=== PATIENT | male | born 1990 | race Two or more races ===

== ENCOUNTER 2021-10-20 18:11 | Inpatient (IN) | payer MEDICAID ==
[~2021-10-20] VITALS: Ht 175.3 cm; Wt 98.9 kg
[2021-10-20 20:38] VITALS: BP 151/82
[2021-10-20] MEDS ORDERED: CARI1.5C PO (21:01)
[2021-10-20] MEDS ORDERED: magnesium hydroxide 30ml (MOM) UD suspension PO PRN (21:05)
[2021-10-20] MEDS ORDERED: loperamide 2mg capsule PO PRN (21:05)
[2021-10-20] MEDS ORDERED: mag hydrox/Alum hydrox/simeth 30ml oral suspension PO PRN (21:05)
[2021-10-20] MEDS ORDERED: acetaminophen 325mg tablet PO PRN ×2 (21:05)
[2021-10-20] MEDS: traZODone 50mg tablet PO PRN (21:15)
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
[2021-10-21 07:03] VITALS: BP 150/85
[2021-10-21 07:45] LABS: HEMOGLOBIN A1C 5.2 % (4.5-6.2)
[2021-10-21 09:42] LABS: CHOL/HDL RATIO 3.3 (0.00-4.99); CHOLESTEROL 134 MG/DL (0-200); HDL CHOLESTEROL 41 MG/DL (35-60); TRIGLYCERIDES 93 MG/DL (20-135)
[2021-10-21 09:43] LABS: LDL CHOLESTEROL 74 MG/DL (50-100)
[2021-10-21] MEDS ORDERED: albuterol 2.5 MG/3 ML nebule NEB PRN (14:10)
[2021-10-21] MEDS ORDERED: NICOTINE POLACRILEX 2 MG LOZENGE BC PRN (14:10)
--- NOTE | 2021-10-21 16:08 | NUR ---
Nursing Progress Note Legal hold: 5150 Client on involuntary status for DTS. Report received from STEVEN Glez with use of SBAR Why they are here: Pt here on a 5150 for DTS for reporting that he had thrown his meds away due to impulse/urges to take them all in an attempt to overdose Assessment What has happened this shift: Patient is resting quietly in bed at the start of the shift. Cooperative with 1:1 assessment. No medication due this shift. Socializes on the unit and interacts appropriately with peers. Denies any SI at this time. States, Do I have anything for anxiety? I dont need anything now but I get manic sometimes. Noted to be smiling and pacing the unit. Snaps/ fidgets his fingers frequently when walking. S/I, H/I: Denies A/VH: Denies Sleep: 1 hour in the morning ADL's: Independent Group attendance: No Were Meds taken: N/A Any med S/E: None observed or reported. Mental Status Exam Appearance: Male, neat, clean dressed in green unit scrubs. Eye contact: Good Behavior: Cooperative, pleasant, social Speech: Clear, normal rate/ volume Mood: Good. Affect: Congruent, full range Thought process: Linear Thought Content: Cognition: A/O x4 Insight: Fair Judgment: Fair Interventions PRN's used: None Therapeutic interventions: Provided 1:1 assessment with therapeutic communication and active listening, provided clear and simple instructions, encouraged participation on the unit and independent completion of ADLs, medication administration/education/monitoring, and maintained Q 15 min safety checks. Restraints/seclusion/emergency medication: N/A Justification of Continued Inpatient Treatment: Patient requires medication stabilization and a safe and supportive environment.
[2021-10-21 19:54] VITALS: BP 135/90
[2021-10-21] MEDS: traZODone 50mg tablet PO PRN (23:03)
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
[2021-10-22] MEDS: ESCITALOPRAM OXALATE 5 MG TABLET PO SCH (07:29)
[2021-10-22 07:34] VITALS: BP 118/67
[2021-10-22 07:51] VITALS: BP 151/92
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
[2021-10-22 19:00] VITALS: BP 141/88
--- NOTE | 2021-10-22 23:22 | NUR ---
Nursing Progress Note: Sylvester Legal hold: 5150 Client on involuntary status for DTS. Report received from Luli with use of SBAR Why they are here: Pt here on a 5150 for DTS for reporting that he had thrown his meds away due to impulse/urges to take them all in an attempt to overdose Assessment What has happened this shift: Patient paces the halls and smiles, he interacts with peers and is pleasant with staff. He is compliant with 1:1 and when asked how his day went he replied laughing, "well I'm in a mental hospital so". He states, "I am writing a letter that I might give to you that I want to have, but please when you read it, don't talk to me about it." Pt never does give RN paper, but he approaches Rn later and says, "I will just give it to myself because it has a lot of crazy shit on it." He paces the hallway for awhile longer and requests trazodone at 2330 which is given to him, and then he lays dowwn. S/I, H/I: Denies A/VH: Denies Sleep: None noted this shift. ADL's: Independent Group attendance: Yes Were Meds taken: N/A Any med S/E: None observed or reported. Mental Status Exam Appearance: Male, neat, clean dressed in green unit scrubs. Eye contact: Good Behavior: Cooperative, pleasant, social Speech: Clear, normal rate/ volume Mood: fair Affect: blunted Thought process: possible thought blocking Thought Content: a letter Cognition: A/O x4 Insight: Fair Judgment: Fair Interventions PRN's used: None Therapeutic interventions: Provided 1:1 assessment with therapeutic communication and active listening, provided clear and simple instructions, encouraged participation on the unit and independent completion of ADLs, medication administration/education/monitoring, and maintained Q 15 min safety checks. Restraints/seclusion/emergency medication: N/A Justification of Continued Inpatient Treatment: Patient requires medication stabilization and a safe and supportive environment.
[2021-10-22] MEDS: traZODone 50mg tablet PO PRN (23:47)
[2021-10-23] MEDS: traZODone 50mg tablet PO PRN ×2 (00:51→22:32)
[2021-10-23 07:09] VITALS: BP 141/93
[2021-10-23] MEDS: ESCITALOPRAM OXALATE 5 MG TABLET PO SCH (07:39)
[2021-10-23] MEDS: CARIPRAZINE 1.5 MG CAPSULE PO SCH (15:20)
--- NOTE | 2021-10-23 16:29 | NUR ---
Nursing Progress Note: Sylvester Legal hold: 5150 Client on involuntary status for DTS. Report received from STEVEN Doshi with use of SBAR Why they are here: Pt here on a 5150 for DTS for reporting that he had thrown his meds away due to impulse/urges to take them all in an attempt to overdose Assessment What has happened this shift: Patient is resting quietly in bed at the start of the shift. Cooperative with 1:1 assessment and medications. Socializes on the unit and smiles much of the time. Appears somewhat anxious AEB fidgeting and states he is waiting to talk to the doctor about something that hes not been honest about. States, They might want to change my meds after I tell them. S/I, H/I: Denies A/VH: Denies Sleep: None noted this shift. ADL's: Independent Group attendance: NA Were Meds taken: Yes Any med S/E: None observed or reported. Mental Status Exam Appearance: Male, neat, clean dressed in green unit scrubs. Eye contact: Good Behavior: Cooperative, pleasant, social Speech: Clear, normal rate/ volume Mood: Good. Affect: Congruent, full range Thought process: Linear Thought Content: Talking to the doctor about his mental health symptoms Cognition: A/O x4 Insight: Fair Judgment: Fair Interventions PRN's used: None Therapeutic interventions: Provided 1:1 assessment with therapeutic communication and active listening, provided clear and simple instructions, encouraged participation on the unit and independent completion of ADLs, medication administration/education/monitoring, and maintained Q 15 min safety checks. Restraints/seclusion/emergency medication: N/A Justification of Continued Inpatient Treatment: Patient requires medication stabilization and a safe and supportive environment.
[2021-10-23 20:11] VITALS: BP 144/83
--- NOTE | 2021-10-23 23:24 | NUR ---
Nursing Progress Note: Sylvester Legal hold: 5250 Client on involuntary status for DTS. Report received from RN with use of SBAR Why they are here: Pt here on a 5150 for DTS for reporting that he had thrown his meds away due to impulse/urges to take them all in an attempt to overdose Assessment What has happened this shift: Pt paces the halls in an upbeat mood. He tells RN that he was able to speak with Jahaira today which made him feel better. Pts 5150 hold is up today and a 5250 is served to pt. A copy was given to him, he read it but gave it back and asked that it be shred so that no one else could read it. PT did not appear agitated or upset in regards to the 5250. He asks if he could stop getting meals and just eat snacks because he wants to lose 20 lbs. RN told pt that he will still be getting meal trays. He had snack and socialized with peers. He takes a trazodone PRN. S/I, H/I: Denies A/VH: Denies Sleep: see sleep assessment ADL's: Independent Group attendance: NA Were Meds taken: Yes Any med S/E: None observed or reported. Mental Status Exam Appearance: Male, neat, clean dressed in green unit scrubs. Eye contact: Good Behavior: Cooperative, pleasant, social Speech: Clear, normal rate/ volume Mood: Good. Affect: upbeat, slightly anxious Thought process: Linear Thought Content: does not share thought content very much Cognition: A/O x4 Insight: Fair Judgment: Fair Interventions PRN's used: None Therapeutic interventions: Provided 1:1 assessment with therapeutic communication and active listening, provided clear and simple instructions, encouraged participation on the unit and independent completion of ADLs, medication administration/education/monitoring, and maintained Q 15 min safety checks. Restraints/seclusion/emergency medication: N/A Justification of Continued Inpatient Treatment: Patient requires medication stabilization and a safe and supportive environment.
--- NOTE | 2021-10-24 05:53 | NUR ---
[facility] CALL: A person called stating they were from [facility] and wanted to determine if client met criteria for continued admission. This RN asked they call the Aoc Director Intelligence Officer or day shift RN as this sounded like a utilization review issue. (The client is on a 5250 at this time, so it was determined client required continued admission.) This RN could not confirm this person was from [facility].)
[2021-10-24] MEDS: CARIPRAZINE 1.5 MG CAPSULE PO SCH (07:55)
[2021-10-24 08:22] VITALS: BP 133/87
--- NOTE | 2021-10-24 11:19 | NUR ---
Initial: Pt admitted w/ suicidal ideations per EMR. Currently on Regular diet w/ mostly 100% intake of meals meeting nutrient needs at this time. Per discharge specialist, pt inquired about not receiving meal trays and only wanting snacks so he could lose 20lb. LBM 10/22. No nutrition intervention implemented at this time, will continue to monitor. Recs: 1. Continue Regular diet as tolerated 2. Bowel care per rx 3. Weekly wts Addendum: 10/24/21 at [address] Amended: Links added.
--- NOTE | 2021-10-24 18:09 | NUR ---
Nursing Progress Note: Legal hold: 5250 Client on involuntary status for DTS. Report received from ELFEGO Hood with use of SBAR Why they are here: Pt here on a 5150 for DTS for reporting that he had thrown his meds away due to impulse/urges to take them all in an attempt to overdose Assessment What has happened this shift: Received patient while he was ambulating throughout the hallways over and over, and then sat in the dining room to rest. Administered morning medications, completed patient assessment and 1:1 Patient Interview. Patient ate all meals in the dining room, and received snacks. Patient spent time coloring in the Community Room most of the day. Patient resting in bed with no complaints at this time. S/I, H/I: Patient reports that he is no longer suicidal but states Im trying to think of a plan in case I need it. A/VH: Denies Sleep: See Sleep Assessment ADL's: Independent Group attendance: No Group Meeting Held Today. Were Meds taken: Yes, without hesitation. Any med S/E: None observed or reported. Mental Status Exam Appearance: Male with brown hair wearing green unit scrubs. Eye contact: Good Behavior: Cooperative, pleasant Speech: Clear, normal rate/ volume Mood: Good. Affect: Cheerful Thought process: Linear Thought Content: Linear Cognition: A/O x4 Insight: Fair Judgment: Fair Interventions PRN's used: None Therapeutic interventions: Provided 1:1 assessment with therapeutic communication and active listening, provided clear and simple instructions, encouraged participation on the unit and independent completion of ADLs, medication administration/education/monitoring, and maintained Q 15 min safety checks. Restraints/seclusion/emergency medication: N/A Justification of Continued Inpatient Treatment: Patient requires medication stabilization and a safe and supportive environment.
--- NOTE | 2021-10-24 18:45 | NUR ---
Nursing Progress Note: Sylvester. he is amb in halls no complaints go by "Evan" Legal hold: 0180 Client on involuntary status for DTS. Report received with use of SBAR
[2021-10-24 20:19] VITALS: BP 143/85
--- NOTE | 2021-10-25 00:40 | NUR ---
Nursing Progress Note: Sylvester. Legal hold: 5250 Client on involuntary status for DTS. Report received with use of SBAR Why they are here: Pt here on a 5250 for DTS for reporting that he had thrown his meds away due to impulse/urges to take them all in an attempt to overdose Assessment What has happened this shift: Pt ambulating in halls freq. sat in rec room for snack and watching some tv. Amb in grubbs at 2300 enc to go to bed. No medications tonight, Pt declined prn Desyrel. Completed 1:1 patient interview. Pt calm and pleasant. No complaints. Pt is resistive to touch, and states he have some stuff going on but will not elaborate. S/I, H/I: Patient reports that he is no longer suicidal but states Im trying to think of a plan in case I need it. A/VH: Denies Sleep: Enc to sleep at 2300, sleeping at this time. ADL's: Independent Group attendance: N/A Were Meds taken: no meds due or requested tonight. Any med S/E: None observed or reported. Mental Status Exam Appearance: brown hair wearing green unit scrubs. Eye contact: Good Behavior: Cooperative, pleasant Speech: Clear, normal rate/ volume Mood: Good. Affect: Cheerful Thought process: Linear Thought Content: states we are like hamsters in a hamster wheel here Cognition: A/O x4 Insight: Fair Judgment: Fair Interventions PRN's used: None Therapeutic interventions: Provided 1:1 assessment with therapeutic communication and active listening, provided clear and simple instructions, encouraged participation on the unit and independent completion of ADLs, medication administration/education/monitoring, and maintained Q 15 min safety checks. Restraints/seclusion/emergency medication: N/A Justification of Continued Inpatient Treatment: Patient requires medication stabilization and a safe and supportive environment.
[2021-10-25 07:36] VITALS: BP 119/88
[2021-10-25] MEDS: CARIPRAZINE 1.5 MG CAPSULE PO SCH (08:02)
[2021-10-25] MEDS ORDERED: atomoxetine 40 MG capsule PO ONE (13:45)
[2021-10-25] MEDS ORDERED: atomoxetine 40 MG capsule PO SCH (13:57)
[2021-10-25] MEDS: atomoxetine 25mg capsule PO SCH ×2 (14:33→14:40)
--- NOTE | 2021-10-25 17:52 | NUR ---
Nursing Progress Note: Legal hold: 5250 Client on involuntary status for DTS. Report received from ELFEGO Cox with use of SBAR Why they are here: Pt here on a 5150 for DTS for reporting that he had thrown his meds away due to impulse/urges to take them all in an attempt to overdose Assessment What has happened this shift: Received patient while he was ambulating in the hallway before breakfast. Patient states Im doing well. Patient reports I didnt sleep too much last night. I think about 2 hours. Reported by nocs that patient slept 2.5 hours. Patient ambulated frequently in the hallways throughout the morning and afternoon. Patient ate meals in the dining room and spoke with peers who were sitting at the same table. Patient is smiling and pleasant when speaking to staff and other peers. Patient coloring pictures in between meals in the Community Room, and took a brief afternoon nap. S/I, H/I: Denies A/VH: Denies Sleep: 2.50 hours ADL's: Independent Group attendance: No Group Meeting Held This Morning. Attended & participated in Afternoon Group Meeting. Were Meds taken: Yes, without hesitation. Patient started Strattera this afternoon. Any med S/E: None observed or reported. Mental Status Exam Appearance: Male with brown hair wearing green unit scrubs. Eye contact: Good Behavior: Cooperative, pleasant Speech: Clear, normal rate/ volume Mood: Im doing well. Affect: Cheerful Thought process: Linear Thought Content: Linear Cognition: A/O x4 Insight: Fair Judgment: Fair Interventions PRN's used: None Therapeutic interventions: Provided 1:1 assessment with therapeutic communication and active listening, provided clear and simple instructions, encouraged participation on the unit and independent completion of ADLs, medication administration/education/monitoring, and maintained Q 15 min safety checks. Restraints/seclusion/emergency medication: N/A Justification of Continued Inpatient Treatment: Patient requires medication stabilization and a safe and supportive environment.
[2021-10-25 20:00] VITALS: BP 136/77
[2021-10-25] MEDS: QUEtiapine 25mg tablet PO SCH (20:40)
[2021-10-25] MEDS: traZODone 50mg tablet PO PRN (20:40)
--- NOTE | 2021-10-26 04:54 | NUR ---
Nursing Progress Note: Legal hold: 5250 Client on involuntary status for DTS. Report received from ELFEGO Rockwell with use of SBAR Why they are here: Pt here on a 5150 for DTS for reporting that he had thrown his meds away due to impulse/urges to take them all in an attempt to overdose Assessment What has happened this shift: Patient walking the unit at the beginning of shift. Pleasant and cooperative with care; compliant with medication. PRN Trazodone provided. Patient denies HI, A/VH but hesitated when asked about SI. Patient stated, "well I know I'm not good enough for you guys to let me leave." He then asked data analyst report writer, "do I need to tell you why I am here?" without being asked and continued, "Well, you know, because you know..." and continued to repeat without ever explaining. He sort of laughed, smiled and fidgeted that did not appear congruent at the time. Patient participated in HS snack prior to bed; observed sleeping and does not appear to be having difficulty. S/I, H/I: +SI A/VH: Denies Sleep: Refer to sleep assessment ADL's: Independent Group attendance: NA Were Meds taken: Yes Any med S/E: None observed or reported Mental Status Exam Appearance: Neat and appropriately dressed in green unit attire Eye contact: Good Behavior: Pleasant and cooperative, social Speech: Clear, audible, regular rate/rhythm Mood: "OK" Affect: Animated/incongruent Thought process: Linear with thought blocking Thought Content: Difficult to assess Cognition: A/O x4 Insight: Fair Judgment: Fair Interventions PRN's used: Trazodone Therapeutic interventions: Provided 1:1 assessment with therapeutic communication and active listening, provided clear and simple instructions, encouraged participation on the unit and independent completion of ADLs, medication administration/education/monitoring, and maintained Q 15 min safety checks. Restraints/seclusion/emergency medication: NA Justification of Continued Inpatient Treatment: Patient requires medication stabilization and a safe and supportive environment.
[2021-10-26 07:29] VITALS: BP 130/75
--- NOTE | 2021-10-26 09:20 | NUR ---
Pt. attended two groups today. In the first one we talked about coping with depression and what coping skills they are able to access to help them stay well. In the second group we did an art expression called, the Path to Wellness where they had to draw out their path to wellness in picture form with steps they will take to keep them well. Pt. engaged appropriately in both groups. He was very interested in the topic and shared a lot from his own personal journey. He moni a picture of his path walking through a forest and was able to map out some steps he needs to take in his own life to stay well. He was alert and oriented X 4. His thought content and thought process were WNL. He was very enthusiastic about he group and reported that going to group is really helping him. Alayna Patel LCSW
[2021-10-26] MEDS ORDERED: atomoxetine 25mg capsule PO ONE (12:55)
--- NOTE | 2021-10-26 15:22 | NUR ---
Nursing Progress Note: Legal hold: 5250 Client on involuntary status for DTS. Report received from ELFEGO Cox with use of SBAR Why they are here: Pt here on a 5150 for DTS for reporting that he had thrown his meds away due to impulse/urges to take them all in an attempt to overdose Assessment What has happened this shift: Patient was up at change of shift. Patient is talkative and social. Patient takes his medication without incident. Patient denies SI/HI and denies audio/visual hallucinations. Patient did not have any meds scheduled for the morning. Later in the morning patient asked RN about the medication he was getting for ADHD. RN spoke to Dr Posadas when he came in in the early afternoon. Dr. Posadas wants patient on Straterra and had RN order a one time dose and start again in the morning on 10/27. Patient states this is helping him think more clearly. Patient asked to be weighed today and RN complied. Patent is pleasant and not distress observed. S/I, H/I: Denies A/VH: Denies Sleep: No naps today. ADL's: Independent Group attendance: Yes Were Meds taken: Yes Any med S/E: None observed or reported. Mental Status Exam Appearance: Male with brown hair wearing green unit scrubs. Eye contact: Good Behavior: Cooperative, pleasant Speech: Clear, normal rate/ volume Mood: Pleasant Affect: Euthymic Thought process: Linear Thought Content: His physique Cognition: A/O x4 Insight: Fair Judgment: Fair Interventions PRN's used: None Therapeutic interventions: Provided 1:1 assessment with therapeutic communication and active listening, provided clear and simple instructions, encouraged participation on the unit and independent completion of ADLs, medication administration/education/monitoring, and maintained Q 15 min safety checks. Restraints/seclusion/emergency medication: N/A Justification of Continued Inpatient Treatment: Patient requires medication stabilization and a safe and supportive environment.
[2021-10-26 20:00] VITALS: BP 135/94
[2021-10-26] MEDS: QUEtiapine 25mg tablet PO SCH (21:40)
[2021-10-26] MEDS: traZODone 50mg tablet PO PRN (21:40)
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
[2021-10-27] MEDS: traZODone 50mg tablet PO PRN (01:33)
[2021-10-27 07:25] VITALS: BP 130/83
[2021-10-27] MEDS: atomoxetine 25mg capsule PO SCH (07:57)
[2021-10-27] MEDS ORDERED: atomoxetine 25mg capsule PO SCH (08:00)
--- NOTE | 2021-10-27 16:43 | NUR ---
Nursing Progress Note: Legal hold: 5250 Client on involuntary status for DTS. Report received from ELFEGO Cox with use of SBAR Why they are here: Pt here on a 5150 for DTS for reporting that he had thrown his meds away due to impulse/urges to take them all in an attempt to overdose Assessment What has happened this shift: Patient was asleep at change of shift and up soon after. Patient appears happy and pleasant. Patient denies suicidal/homicidal ideation. Patient denies audio/visual hallucinations. Patient was started on Strattera a couple of days ago. Per patient, Dr Posadas is going to increase his Strattera and evaluate how he does on the increased dose. Patient is social with peers and staff. Patient is a little awkward and tells RN how much he likes wearing the green scrubs. S/I, H/I: Denies A/VH: Denies Sleep: No naps today. ADL's: Independent Group attendance: No Were Meds taken: Yes Any med S/E: None observed or reported. Mental Status Exam Appearance: Male with brown hair wearing green unit scrubs. Eye contact: Good Behavior: Cooperative, pleasant Speech: Clear, normal rate/ volume Mood: Pleasant Affect: Euthymic Thought process: Linear Thought Content: His physique Cognition: A/O x4 Insight: Fair Judgment: Fair Interventions PRN's used: None Therapeutic interventions: Provided 1:1 assessment with therapeutic communication and active listening, provided clear and simple instructions, encouraged participation on the unit and independent completion of ADLs, medication administration/education/monitoring, and maintained Q 15 min safety checks. Restraints/seclusion/emergency medication: N/A Justification of Continued Inpatient Treatment: Patient requires medication stabilization and a safe and supportive environment.
[2021-10-27 20:00] VITALS: BP 130/86
[2021-10-27] MEDS: QUEtiapine 25mg tablet PO SCH (20:25)
--- NOTE | 2021-10-28 00:35 | NUR ---
Nursing Progress Note Legal hold: 5250 for being a danger to himself Report received from Roman Rockwell ticket agent Reason for Admit The patient was placed on 5150 by [facility] for danger to self after he self-presented to the ER with SI. He reported he threw his medications down the toilet out of fear he would overdose on them. He has a history of overdose. Assessment What has happened this shift: The patient was up on the unit and was social with peers and staff. He was very pleasant when approached for the evening assessment. He was dressed in [facility] scrubs and appeared well groomed. He maintained good eye contact during one to one conversation. He is alert and oriented. He has not had any behaviors that have required redirection or intervention from staff. Psychotic symptoms were not evident and were denied by the patient. He stated that he felt he had a good day. He is medication compliant he he denies medication side effects. He is able to verbalize what medications are prescribed to him. He denied anxiety. When asked how his mood was he replied, "pretty good" but stated that he struggles with depression and chronic suicidal thoughts. He stated that he felt safe here on the unit but did not yet feel ready to discharge. He reports chronic fleeting suicidal thoughts. Justification of Continued Inpatient Treatment: Medication adjustments continue for further stabilization of mood. The patient continues to have fleeting suicidal thoughts.
[2021-10-28 07:11] VITALS: BP 146/87
[2021-10-28] MEDS: atomoxetine 40 MG capsule PO SCH (07:33)
--- NOTE | 2021-10-28 08:55 | NUR ---
Pt. attended two groups today. In our first group we talked about hearing voices and read an article about coping strategies. We discussed what coping strategies they had success with in the past and brainstormed developing coping skills. The second group was an Art Expression where they had to draw opposing emotions and then write a dialogue between these emotions. Pt. is alert and oriented X 4. His thought content and thought process were WNL. He engaged well in both groups. He listened intently to this Curtain Framer and to his peers. He enjoys giving feedback and shares from his own journey. He especially enjoys the art expression. He stated, "these groups are good because they really make me think". Today in his art expression he chose sadness and donnell. He shared his written dialogue appropriately with the group. His demeanor is calm and pleasant. RUBINA GrantW
--- NOTE | 2021-10-28 10:15 | NUR ---
Reassessment: Per seed sorter pt "asks if he could stop getting meals and just eat snacks because he wants to lose 20 lbs" though RN accurately informed pt that he will still be getting meal trays. Pt continues eating well with mostly 100% PO intake of meals meeting estimated nutrient needs. Noted pt continues to participate in snacks per seed sorter. Recommend encouraging pt to continue to consume meal trays to meet estimated estimated nutrient needs. LBM 10/28. No nutrition intervention implemented at this time. Will continue to follow. Recommendations: 1. Continue regular diet 2. Bowel care per rx 3. Weekly scaled wts Addendum: 10/28/21 at [address] Amended: Links added.
--- NOTE | 2021-10-28 15:14 | NUR ---
Nursing Progress Note: Legal hold: 5250 Client on involuntary status for DTS. Report received from ELFEGO Glez with use of SBAR Why they are here: Pt here on a 5150 for DTS for reporting that he had thrown his meds away due to impulse/urges to take them all in an attempt to overdose Assessment What has happened this shift: Pt was up before breakfast. Pt was cooperative with taking his Strattera. Pt asked this RN several questions about Strattera, medication education provided. Pt reported some mild depression with intermittent thoughts of suicide though states they are not serious and he wouldn't act on them. Pt states, "I have lots of other issues though." Pt did not elaborate on his other issues. Pt is friendly and talkative. Pt paces the unit and socializes with staff and select peers. S/I, H/I: Passive, intermittent SI that pt states is not serious and he would not act on. A/VH: Pt denies Sleep: Pt slept 6.25 hours last night per noc shift report. ADL's: Independent Group attendance: Yes Were Meds taken: Yes Any med S/E: None noted or reported. Mental Status Exam Appearance: Stocky younger appearing male with straight medium length light brown hair dressed in green unit scrubs. Eye contact: Good Behavior: Pleasant, cooperative. Speech: Clear, audible, hyperverbal. Mood: Mildly depressed. Affect: Incongruent, bright though pt verbalizes that he realizes his affect does not portray his depression. Thought process: Linear Thought Content: He has lots of issues. Cognition: A/O x4 Insight: Fair Judgment: Fair Interventions PRN's used: None Therapeutic interventions: 1:1 assessment, establishment of rapport, therapeutic conversation, active listening, encouraged group attendance and participation in unit activities, medication administration/education/monitoring, provided distraction, direction, positive reinforcement, and Q 15 minute safety checks. Restraints/seclusion/emergency medication: N/A Justification of Continued Inpatient Treatment: Pt in need of crisis interruption and stabilization with medication adjustment and monitoring in a safe and therapeutic environment.
[2021-10-28 19:24] VITALS: BP 120/79
[2021-10-28] MEDS: QUEtiapine 25mg tablet PO SCH (20:15)
--- NOTE | 2021-10-29 00:58 | NUR ---
Nursing Progress Note: Legal hold: 5250 Client on involuntary status for DTS. Report received from ELFEGO Powell with use of SBAR Why they are here: Pt here on a 5150 for DTS for reporting that he had thrown his meds away due to impulse/urges to take them all in an attempt to overdose Assessment What has happened this shift: Patient observed pacing around unit at beginning of shift. Patient denies feeling suicidal and stats he is just feeling really bored. Patient refuses to take night medications. Patient states he is not going to take them tonight. Patient made agreement with doctor to see how he does tonight without it. Patient participated in snack and spent hours walking around with other patient talking. S/I, H/I: denies A/VH: Pt denies Sleep: See sleep assessment ADL's: Independent Group attendance: Yes Were Meds taken: Yes Any med S/E: None noted or reported. Mental Status Exam Appearance: Fit young man with straight medium length light brown hair dressed in green unit scrubs. Eye contact: Good Behavior: Pleasant, cooperative. Speech: Clear, audible, hyperverbal. Mood: social Affect: Incongruent, bright Thought process: Linear Thought Content: connecting with other patients Cognition: A/O x4 Insight: Fair Judgment: Fair Interventions PRN's used: None Therapeutic interventions: 1:1 assessment, establishment of rapport, therapeutic conversation, active listening, encouraged group attendance and participation in unit activities, medication administration/education/monitoring, provided distraction, direction, positive reinforcement, and Q 15 minute safety checks. Restraints/seclusion/emergency medication: N/A Justification of Continued Inpatient Treatment: Pt in need of crisis interruption and stabilization with medication adjustment and monitoring in a safe and therapeutic environment.
[2021-10-29 07:22] VITALS: BP 112/58
[2021-10-29] MEDS: atomoxetine 40 MG capsule PO SCH (07:55)
[2021-10-29] MEDS ORDERED: atomoxetine 25mg capsule PO STA (09:38)
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
[2021-10-29 19:23] VITALS: BP 129/69
[2021-10-29] MEDS: QUEtiapine 25mg tablet PO SCH (20:18)
--- NOTE | 2021-10-29 23:59 | NUR ---
Nursing Progress Note: Legal hold: 5250 Client on involuntary status for DTS. Report received from Andre TELLES with use of SBAR Why they are here: Pt here on a 5150 for DTS for reporting that he had thrown his meds away due to impulse/urges to take them all in an attempt to overdose Assessment What has happened this shift: Patient was found sitting in community room socializing with other patients at beginning of shift. Patient agreed to take night medications tonight. Patient was observed sitting in corner starting at other patient. When nurse asked if he was okay and what he was think. Patient became very excited and tried to convince the nurse that its time for him to go home. Patient took night medications without any problems. S/I, H/I: denies A/VH: Pt denies Sleep: See sleep assessment ADL's: Independent Group attendance: Yes Were Meds taken: Yes Any med S/E: None noted or reported. Mental Status Exam Appearance: Stocky young man dressed in green unit scrubs. Eye contact: Good Behavior: Pleasant, cooperative, restless, socializes with peers, does exercises. Speech: Clear, audible, hyperverbal. Mood: Elevated, restless. Affect: Animated. Thought process: Minimizes degree of mental illness, some degree of grandiosity. Thought Content: He doesn't need any medication except Strattera, he is happy and does not need to be here. Cognition: A/O x4 though minimizes situation. Insight: Fair Judgment: Poor Interventions PRN's used: None Therapeutic interventions: 1:1 assessment, establishment of rapport, therapeutic conversation, active listening, ensured contract for safety, encouraged group attendance and participation in unit activities, medication administration/education/monitoring, provided reality orientation, distraction, direction, positive reinforcement, and Q 15 minute safety checks. Restraints/seclusion/emergency medication: N/A Justification of Continued Inpatient Treatment: Pt in need of crisis interruption and stabilization with medication adjustment and monitoring in a safe and therapeutic environment.
[2021-10-30] MEDS ORDERED: atomoxetine 40 MG capsule PO SCH (08:00)
[2021-10-30] MEDS ORDERED: atomoxetine 25mg capsule PO SCH ×2 (08:00)
[2021-10-30 08:22] VITALS: BP 118/68
--- NOTE | 2021-10-30 16:22 | NUR ---
Nursing Progress Note: Legal hold: 5250 Client on involuntary status for DTS. Report received from Mary Grace Rhodes RN with use of SBAR Why they are here: Pt here on a 5150 for DTS for reporting that he had thrown his meds away due to impulse/urges to take them all in an attempt to overdose Assessment What has happened this shift: Pt was up before breakfast. Pt was cooperative with his Strattera 65 mg this morning. Pt was sitting in the community room before breakfast reading the Bible and taking notes. Pt stated that he was looking for guidance on how to be a better person. Pt has some fairly good insight. Pt continues to report daily passive SI. Pt states it is better today than yesterday, yesterday was a bad day. Pt states that his thoughts of not wishing to be alive anymore become worse when he dwells or ruminates on negative past experiences and mistakes. Pt states that he has reasons to live namely his mom and his brother. Pt states that he is a nice, compassionate person but he has a tendency to hold things in and let them build up until he explodes in a rage. Pt states that he is starting to feel better because he has started to formulate plans/goals for when he gets out of here on how he can be a better person. "Not just going to the gym but other things too." Pt chose not to elaborate on the other things. Pt has a tendency to close his eyes while he is conversing with this nurse. When he stops talking, he opens them again. Pt's Strattera was increased to 80 mg daily. Pt took his Seroquel last night though reports he did not sleep as well, his sleep was broken. Pt reports he slept better the night before last when he refused the Seroquel. S/I, H/I: Passive, intermittent SI, pt contracts for safety. A/VH: Pt denies Sleep: Pt slept 6.5 hours last night per noc shift report. ADL's: Independent Group attendance: No groups today. Were Meds taken: Yes Any med S/E: Pt reports that he did not sleep well last night he believes because of taking Seroquel. Mental Status Exam Appearance: Stocky younger appearing male with straight medium length light brown hair dressed in green unit scrubs. Eye contact: Fair; pt closes his eyes when he is conversing with staff. Behavior: Pleasant, cooperative, restless, socializes with peers, paces and does exercises with peers such as squats in the hallway. Speech: Clear, audible, hyperverbal. Mood: Calm Affect: Calm Thought process: Ruminative Thought Content: Future oriented, he is formulating plans of how to be a better person after discharge. Cognition: A/O x4 Insight: Fair to good Judgment: Fair Interventions PRN's used: None Therapeutic interventions: 1:1 assessment, therapeutic conversation, active listening, ensured contract for safety, encouraged group attendance and participation in unit activities, medication administration/education/monitoring, provided distraction, direction, positive reinforcement, and Q 15 minute safety checks. Restraints/seclusion/emergency medication: N/A Justification of Continued Inpatient Treatment: Pt in need of crisis interruption and stabilization with medication adjustment and monitoring in a safe and therapeutic environment.
[2021-10-30 20:00] VITALS: BP 148/82
[2021-10-30] MEDS: QUEtiapine 25mg tablet PO SCH (20:42)
[2021-10-30 21:29] VITALS: BP 148/82
--- NOTE | 2021-10-30 22:41 | NUR ---
Nursing Progress Note: Legal hold: 5250 Client on involuntary status for DTS. Report received from Mary Grace Rhodes RN with use of SBAR Why they are here: Pt here on a 5150 for DTS for reporting that he had thrown his meds away due to impulse/urges to take them all in an attempt to overdose Assessment What has happened this shift: Pt talking to cohorts in hallway at shift change. Pt is very polite and open. Pt reports feeling better today and states that he will not be taking his Seroquel tonight as he feels better without it. Pt goes onto describe an interaction he had with the Dr today and explaining to the Dr about his dislike for the medication. Pt watched movies with cohorts in community room. Pt sat in hallway with other pts and talked softly to each other appropriately. Pt went to bed shortly after. S/I, H/I: Passive, intermittent SI, pt contracts for safety. A/VH: Pt denies Sleep: See sleep hours ADL's: Independent Group attendance: No groups in the evening Were Meds taken:No Any med S/E: Pt reports that he did not sleep well last night he believes because of taking Seroquel. Mental Status Exam Appearance: Stocky younger appearing male with straight medium length light brown hair dressed in green unit scrubs. Eye contact: good Behavior: Pleasant, cooperative, restless, socializes with peers, talks to other pts in hallway Speech: Clear, audible, hyperverbal. Mood: Calm Affect: Calm Thought process: Ruminative Thought Content: Future oriented, he is formulating plans of how to be a better person after discharge. Cognition: A/O x4 Insight: Fair to good Judgment: Fair Interventions PRN's used: None Therapeutic interventions: 1:1 assessment, therapeutic conversation, active listening, ensured contract for safety, encouraged group attendance and participation in unit activities, medication administration/education/monitoring, provided distraction, direction, positive reinforcement, and Q 15 minute safety checks. Restraints/seclusion/emergency medication: N/A Justification of Continued Inpatient Treatment: Pt in need of crisis interruption and stabilization with medication adjustment and monitoring in a safe and therapeutic environment.
--- NOTE | 2021-10-31 02:01 | NUR ---
Patient awake 0200. Patient refused Seroquel PRN. When asked why the patient was still awake and having trouble sleeping the patient replied that he was thinking about bettering himself and doing good.
[2021-10-31 07:31] VITALS: BP 121/75
[2021-10-31] MEDS: atomoxetine 40 MG capsule PO SCH (08:04)
--- NOTE | 2021-10-31 15:18 | NUR ---
Nursing Progress Note: Sylvester Evan Legal hold: 5250 Client on involuntary status for DTS. Report received from CRN with use of SBAR Why they are here: Pt here on a 5150 for DTS for reporting that he had thrown his meds away due to impulse/urges to take them all in an attempt to overdose Assessment What has happened this shift: Pt. received exercising in the grubbs, he presents as neat and clean, cooperative with 1:1 assessment. Pt. endorses passive SI at times it crosses my mind Pt denies any plans. He reports he is here for two main reasons, but is reluctant to discuss the 1st with junior copywriter, but openly talks about it with providers, the 2nd reason was suicidal plans he recited a list of plans and actions he is going to take when DC, such as, Im going home, continue on my work out, and get more lutheran Pt. engages socially with cohorts, and remained OOB throughout the shift, often doing pushups in the grubbs, reading, or pacing. Pt. had 2.25hrs sleep logged from NOC shift, but refuses needing to rest, or nap. Received a phone call from pts. mother this afternoon with reports of: Pt. called reporting grandiose delusions Im the next thing to Tony Luis and his plan to continue to stay up all night to protect the public. Pt. has been observed reading in the hallway and requested writing paper, cox has not napped yet this shift. Pt. assessed for anxiety; denies. At 1400 junior copywriter observed pt. intensely drawing while sitting in the hallway, I approached him and he hid his notebook I witnessed writing saying, I am a Vampire, Evil one to protect God. I encouraged pt lay down to rest and again assed for anxiety, but he was calm, no s/sx of radha, hiding his delusional thoughts, and again refused needing anything. S/I, H/I: Passive SI at times A/VH: Denies both Sleep: No naps this shift. ADL's: Independent Group attendance: NA Were Meds taken: Yes Any med S/E: None reported or observed. Mental Status Exam Appearance: Stocky young male, neat and clean, wearing unit scrubs. Eye contact: Fair Behavior: Pleasant, cooperative, restless at times Speech: Clear, hyper verbal at times Mood: Calm Affect: Congruent Thought process: Delusional, grandiose Thought Content: Preserves on DC plans Cognition: A/O x4 Insight: Good Judgment: Good Interventions PRN's used: None Therapeutic interventions: 1:1 assessment, therapeutic conversation, active listening, ensured contract for safety, encouraged group attendance and participation in unit activities, medication administration/education/monitoring, provided distraction, direction, positive reinforcement, and Q 15 minute safety checks. Restraints/seclusion/emergency medication: N/A Justification of Continued Inpatient Treatment: Pt in need of crisis interruption and stabilization with medication adjustment and monitoring in a safe and therapeutic environment.
[2021-10-31 20:00] VITALS: BP 126/77
[2021-10-31] MEDS: QUEtiapine 25mg tablet PO SCH (21:00)
--- NOTE | 2021-11-01 00:45 | NUR ---
Nursing Progress Note: Sylvester Gordon Legal hold: 5250 Client on involuntary status for DTS. Report received from CRN with use of SBAR Why they are here: Pt here on a 5150 for DTS for reporting that he had thrown his meds away due to impulse/urges to take them all in an attempt to overdose Assessment What has happened this shift: Pt talking to cohorts in Rec room at shift change. Pt is couteous but paranoid. !;! with pt. Pt states that hurting himself crosses his mind but he doesn't take it seriously, denies A/V A/H. This nurse asked the pt about sleep tonight and if he would consider taking his medications. Pt became quite and asked why I wanted him to take his medications so bad. I replied to the pt that not sleeping isn't good and he needs sleep to be ready for the day. The pt stated that if he couldn't sleep he would take the prescribed Seroquel. Pt ate snack at snack time and then went to bed shortly after. S/I, H/I: Passive SI at times A/VH: Denies Sleep: See sleep hours ADL's: Independent Group attendance: No group in the evenings Were Meds taken: Yes Any med S/E: None reported or observed. Mental Status Exam Appearance: Stocky young male, neat and clean, wearing unit scrubs. Eye contact: Fair Behavior: Pleasant, cooperative, paranoid Speech: Clear, hyper verbal at times Mood: Calm Affect: Congruent Thought process: Delusional, grandiose Thought Content: Preserves on DC plans Cognition: A/O x4 Insight: Good Judgment: Good Interventions PRN's used: None Therapeutic interventions: 1:1 assessment, therapeutic conversation, active listening, ensured contract for safety, encouraged group attendance and participation in unit activities, medication administration/education/monitoring, provided distraction, direction, positive reinforcement, and Q 15 minute safety checks. Restraints/seclusion/emergency medication: N/A Justification of Continued Inpatient Treatment: Pt in need of crisis interruption and stabilization with medication adjustment and monitoring in a safe and therapeutic environment.
[2021-11-01] MEDS: atomoxetine 40 MG capsule PO SCH (07:57)
[2021-11-01 08:43] VITALS: BP 121/70
--- NOTE | 2021-11-01 09:54 | NUR ---
Pt. attended group today. We talked about how we all look at the world differently due to our core beliefs. These core beliefs then inform thoughts and behaviors. Each pt. identified one negative core belief and then wrote out three truths that contradict their negative beliefs to work on thinking differently. Pt. engaged in the group minimally today. He shared only when asked to share his thougth and in those times seemed a bit hesitant. His demeanor was calm and pleasant. He was alert and oriented X 4. His thought content and thought process were WNL but this was hard to observe since he didn't speak out as much as usual in group. He shared that he feels as thought he is a bad person due to things that happened to him as a child. He was able to work through the CBT process and come up with some reframed thoughts such as, "I am a loving and compassionate person". He explained that he loves and cares for his brother. His mood was a bit down with a restricted affect. Alayna Patel LCSW
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
--- NOTE | 2021-11-01 15:44 | NUR ---
Nursing Progress Note: Sylvester Gordon Legal hold: 5250 Client on involuntary status for DTS. Report received CRN with use of SBAR Why they are here: Pt here on a 5150 for DTS for reporting that he had thrown his meds away due to impulse/urges to take them all in an attempt to overdose Assessment What has happened this shift: Pt. received pacing in the grubbs, he received his medication, was cooperative with 1:1 assessment. Pt. continues to endorse passive SI Its just always there in my mind Pt. attended his meals in the MDR with cohorts, often observed as friendly with cohorts, social, and smiling. Pt. was often observed pacing and carrying a yellow notebook. Pt. presented as delusional stating I can go 7mo without brushing my teeth because I have healthy saliva, and thats why we can lick our wounds and recover like wolves Corrective Therapy Aide Teacher encouraged pt. utilize dental hygiene products. Pt. spent most of the afternoon watching tv and socializing. S/I, H/I: Passive SI A/VH: Denies both Sleep: No naps ADL's: Independent Group attendance: yes Were Meds taken: Yes Any med S/E: None reported or observed. Mental Status Exam Appearance: Stocky young male, neat and clean, wearing unit scrubs. Eye contact: Fair Behavior: Pleasant, cooperative, restless at times Speech: Clear, hyper verbal at times Mood: Calm Affect: Congruent Thought process: Linear Thought Content: Im ready to go home Cognition: A/O x4 Insight: Good Judgment: Good Interventions PRN's used: None Therapeutic interventions: 1:1 assessment, therapeutic conversation, active listening, ensured contract for safety, encouraged group attendance and participation in unit activities, medication administration/education/monitoring, provided distraction, direction, positive reinforcement, and Q 15 minute safety checks. Restraints/seclusion/emergency medication: N/A Justification of Continued Inpatient Treatment: Pt in need of crisis interruption and stabilization with medication adjustment and monitoring in a safe and therapeutic environment.
[2021-11-01 19:23] VITALS: BP 109/70
[2021-11-01] MEDS: QUEtiapine 25mg tablet PO SCH (20:44)
--- NOTE | 2021-11-01 23:27 | NUR ---
Nursing Progress Note: Sylvester Evan Legal hold: 5250 Client on involuntary status for DTS. Report received CRN with use of SBAR Why they are here: Pt here on a 5150 for DTS for reporting that he had thrown his meds away due to impulse/urges to take them all in an attempt to overdose Assessment What has happened this shift: Pt was in group room at change of shift socializing with peers. Pt is in a good mood states "I dont know if I want to take my meds tonight, Dodie been sleeping but Im not sure If i need them, I'll let you know." Pt continued to socialize with peers. At HS pt took meds and states "Oh ok I guess I'll be nice and take meds tonight." S/I, H/I: Passive SI A/VH: Denies both Sleep: No naps ADL's: Independent Group attendance: yes Were Meds taken: Yes Any med S/E: None reported or observed. Mental Status Exam Appearance: Stocky young male, neat and clean, wearing unit scrubs. Eye contact: Fair Behavior: Pleasant, cooperative, Speech: Clear, hyper verbal at times Mood: Calm Affect: Congruent Thought process: Linear Thought Content:states he doesnt think he needs medication. Cognition: A/O x4 Insight: Good Judgment: Good Interventions PRN's used: None Therapeutic interventions: 1:1 assessment, therapeutic conversation, active listening, ensured contract for safety, encouraged group attendance and participation in unit activities, medication administration/education/monitoring, provided distraction, direction, positive reinforcement, and Q 15 minute safety checks. Restraints/seclusion/emergency medication: N/A Justification of Continued Inpatient Treatment: Pt in need of crisis interruption and stabilization with medication adjustment and monitoring in a safe and therapeutic environment.
[2021-11-02 07:31] VITALS: BP 117/75
--- NOTE | 2021-11-02 07:34 | NUR ---
Reassessment: Pt continues on Regular diet w/ mostly 100% intake of meals and some snacks, meeting est nutrient needs at this time Pt has previously asked if he could stop getting meals and just eat snacks because he wants to lose 20 lbs per nursing documentation. Recommend encouraging pt to continue to consume meal trays to meet estimated estimated nutrient needs. LBM 10/31. No nutrition intervention implemented at this time. Will continue to follow. Recommendations: 1. Continue regular diet 2. Bowel care per rx 3. Weekly scaled wts Addendum: 11/02/21 at [address] Amended: Links added.
[2021-11-02] MEDS: atomoxetine 40 MG capsule PO SCH (07:55)
--- NOTE | 2021-11-02 09:32 | NUR ---
Pt. attended both groups today. In the morning group we talked about the different types of unhealthy thinking and how to identify each one. Pt. engaged in the group sharing his thoughts. He was a bit distractible today and seemed to struggle to concentrate. He appeared to be zoning out a lot. He reported that he feels the medications are messing with him today. His demeanor was pleasant and calm. When asked about what his thoughts were he didn't have much to share. The second group was an Art Expression group where they were asked to draw a symbol of themselves representing where they were currently at. Pt moni a sword which he reported represented himself. He reported that he feels that he is strong and is a warrior and sometimes feels elegant. He reported that he wishes his mental health will become stronger and that he will be more healthy. Alayna Patel, INSPECTOR [employer]
--- NOTE | 2021-11-02 16:37 | NUR ---
Nursing Progress Note: Sylvester Legal hold: 5250 Client on involuntary status for DTS. Report received from STEVEN Glez with use of SBAR Why they are here: Pt here on a 5150 for DTS for reporting that he had thrown his meds away due to impulse/urges to take them all in an attempt to overdose Assessment What has happened this shift: Patient is asleep at change of shift and up soon after. Patient is very social and watches T.V. and chats with peers and staff. Patient states he does think about suicide a lot but doesn't know if we would actually kill himself. Patient spoke about his medication at night and each time a new provider comes on they adjusts and readjusts what the previous provider did. He feels it's like an ego war going on. He does not want to take his night time medication and RN advised patient to be open and honest with the providers about how he is feeling. Patient stated he would. S/I, H/I: Passive SI A/VH: Denies Sleep: No naps ADL's: Independent Group attendance: yes Were Meds taken: Yes Any med S/E: None reported or observed. Mental Status Exam Appearance: Medium built male wearing green scrubs Eye contact: Good Behavior: Pleasant, cooperative, hyperactive Speech: Clear, verbose Mood: Euthymic Affect: Congruent Thought process: Linear Thought Content: Medication Cognition: A/O x4 Insight: Good Judgment: Good Interventions PRN's used: None Therapeutic interventions: 1:1 assessment, therapeutic conversation, active listening, ensured contract for safety, encouraged group attendance and participation in unit activities, medication administration/education/monitoring, provided distraction, direction, positive reinforcement, and Q 15 minute safety checks. Restraints/seclusion/emergency medication: N/A Justification of Continued Inpatient Treatment: Pt in need of crisis interruption and stabilization with medication adjustment and monitoring in a safe and therapeutic environment.
[2021-11-02 20:00] VITALS: BP 146/81
[2021-11-02] MEDS: QUEtiapine 25mg tablet PO SCH (20:10)
--- NOTE | 2021-11-03 02:34 | NUR ---
Nursing Progress Note: Legal hold: 5250 Client on involuntary status for DTS. Report received ELFEGO Powell with use of SBAR Why they are here: Pt here on a 5150 for DTS for reporting that he had thrown his meds away due to impulse/urges to take them all in an attempt to overdose Assessment What has happened this shift: Patient was seen in the community room at shift change. He was watching a movie with peers. There were three of them watching. After about an hour they all decided to pace the halls for a while, then back to watching movies. Patient denies all MH symptoms and none were noted. He is polite and cooperative, but declined Seroquel tonight, stating it makes him feel bad. Patient says he'll talk to provider about it tomorrow. S/I, H/I: Passive SI A/VH: Denies Sleep: See sleep assessment ADL's: Independent Group attendance: yes Were Meds taken: Yes, not Seroquel. Any med S/E: None reported or observed. Mental Status Exam Appearance: Stocky young male, neat and clean, wearing unit scrubs. Eye contact: Fair Behavior: Pleasant, cooperative, Speech: Clear, hyper verbal at times Mood: Calm Affect: Congruent Thought process: Linear Thought Content: States he doesn't think he needs medication. Cognition: A/O x4 Insight: Good Judgment: Good Interventions PRN's used: None Therapeutic interventions: 1:1 assessment, therapeutic conversation, active listening, ensured contract for safety, encouraged group attendance and participation in unit activities, medication administration/education/monitoring, provided distraction, direction, positive reinforcement, and Q 15 minute safety checks. Restraints/seclusion/emergency medication: N/A Justification of Continued Inpatient Treatment: Pt in need of crisis interruption and stabilization with medication adjustment and monitoring in a safe and therapeutic environment.
[2021-11-03 08:00] VITALS: BP 137/82
[2021-11-03] MEDS: atomoxetine 40 MG capsule PO SCH (08:05)
--- NOTE | 2021-11-03 13:11 | NUR ---
Nursing Progress Note: BUBBA Legal hold: 5250 Expires 11/06 Client on involuntary status for DTS. Report received from STEVEN Glez with use of SBAR Why they are here: Pt here on a 5150 for DTS for reporting that he had thrown his meds away due to impulse/urges to take them all in an attempt to overdose Assessment What has happened this shift: Received patient awake talking with his roommate at shift change. Pt was pleasant upon greeting. Pt was compliant with care and medication. Pt continues to report suicidal thoughts, but states I dont want to . Pt denies A/VH. Pt is social and goal oriented. Pt attends and participates in group. S/I, H/I: Passive SI A/VH: Pt denies both. Sleep: 6.0 hours per sleep assessment. No naps this shift. ADL's: Independent Group attendance: Yes Were Meds taken: Yes, without issue. Any med S/E: None reported or observed. Mental Status Exam Appearance: Medium built male wearing green scrubs Eye contact: Good Behavior: Pleasant, cooperative, hyperactive Speech: Clear, normal rate/rhythm Mood: Euthymic Affect: Congruent Thought process: Linear Thought Content: Goal oriented. Cognition: A/O x4 Insight: Good Judgment: Good Interventions PRN's used: None Therapeutic interventions: 1:1 assessment, therapeutic conversation, active listening, encouraged group attendance and participation in unit activities, medication administration/education/monitoring, provided distraction, direction, positive reinforcement, and Q 15 minute safety checks. Restraints/seclusion/emergency medication: N/A Justification of Continued Inpatient Treatment: Pt in need of crisis interruption and stabilization with medication adjustment and monitoring in a safe and therapeutic environment.
[2021-11-03 19:50] VITALS: BP 125/73
--- NOTE | 2021-11-03 21:02 | NUR ---
Nursing Progress Note: BUBBA Legal hold: 5250 Expires 11/06 Client on involuntary status for DTS. Report received from STEVEN Salinas with use of SBAR Why they are here: Pt here on a 5150 for DTS for reporting that he had thrown his meds away due to impulse/urges to take them all in an attempt to overdose Assessment What has happened this shift: pt was walking in the grubbs at change of shift, states he is going home tomorrow. Pt talks about going back to [facility] and states it's a nice place to live but he cant find work there easily. Pt states he likes to go out in nature and work out at the gym but hes hoping to find some other things to do when he gets home. Pt states he is happy to be going back. S/I, H/I: denies A/VH: Pt denies both. Sleep: see sleep hours ADL's: Independent Group attendance: Yes Were Meds taken: Yes, without issue. Any med S/E: None reported or observed. Mental Status Exam Appearance: Medium built male wearing green scrubs Eye contact: Good Behavior: Pleasant, cooperative, Speech: Clear, normal rate/rhythm Mood: Euthymic Affect: Congruent Thought process: Linear Thought Content: Goal oriented. Cognition: A/O x4 Insight: Good Judgment: Good Interventions PRN's used: None Therapeutic interventions: 1:1 assessment, therapeutic conversation, active listening, encouraged group attendance and participation in unit activities, medication administration/education/monitoring, provided distraction, direction, positive reinforcement, and Q 15 minute safety checks. Restraints/seclusion/emergency medication: N/A Justification of Continued Inpatient Treatment: Pt in need of crisis interruption and stabilization with medication adjustment and monitoring in a safe and therapeutic environment.
[2021-11-04 07:26] VITALS: BP 112/65
[2021-11-04] MEDS: atomoxetine 40 MG capsule PO SCH (07:45)
--- NOTE | 2021-11-04 09:14 | NUR ---
Pt attended group today. Today we talked about Resiliency and Hope. Each pt. filled out a paper with what strengths and good qualities they believed they had and then constructed Vision Pages/Collages with inspiring words and pictures to inspire and create intention towards things hoped for in the future. Pt. engaged appropriately in the group. He was alert and oriented X 4. His thought content and thought process were WNL. He engaged in the collage making and did the written portion as well. He was happy to share it with group. Alayna Patel LCSW
[2021-11-04] MEDS ORDERED: NICO-907 BC (14:07)
[2021-11-04] MEDS ORDERED: ATOM80CA3 PO (14:07)
--- NOTE | 2021-11-04 14:25 | NUR ---
DISCHARGE TODAY Scheduled Evan's follow up with [facility]. Called his mom, Nani Baker (Ph# [phone]), and informed him he is discharging today. She reported she will pick him up in about an hour (around 3:30 PM). DONNY Bird
--- NOTE | 2021-11-04 15:40 | NUR ---
DISCHARGE NOTE: Pt discharge to home. Pt. RN went over discharge paperwork and pt. verbalized understanding of f/u plan, discharge medications, crisis numbers including 911. Pt. signed all paperwork. Pt. discharged with all belongings. Pt. denies SI/HI, A/V hallucinations. Pt. in no apparent distress and is A&Ox4. Pt. showed significant improvement during hospitalization.
== END 2021-11-04 15:40 | disposition home or self-care (01) | DRG 751 ==
LOC: ADULT MH 20:29
PROVIDERS: ADMIT Psychiatry & Neurology Psychiatry; ATTEND Psychiatry & Neurology Psychiatry
DX: F33.2 Major depressive disorder, recurrent severe without psychotic features (principal); R45.851 Suicidal ideations; J44.0 Chronic obstructive pulmonary disease with (acute) lower respiratory infection; J40 Bronchitis, not specified as acute or chronic; F10.10 Alcohol abuse, uncomplicated; J44.9 Chronic obstructive pulmonary disease, unspecified; F43.12 Post-traumatic stress disorder, chronic; F12.20 Cannabis dependence, uncomplicated; F17.210 Nicotine dependence, cigarettes, uncomplicated; F90.2 Attention-deficit hyperactivity disorder, combined type; Z83.3 Family history of diabetes mellitus; Z79.899 Other long term (current) drug therapy; Z71.6 Tobacco abuse counseling
CPT/HCPCS: 36415; 80061; 83036; 87081

== ENCOUNTER 2022-01-04 17:54 | Inpatient (IN) | payer MEDICAID ==
[~2022-01-04] VITALS: Ht 175.3 cm; Wt 93.4 kg
[~2022-01-04 17:54] MED LIST: ATOM80CA3 PO; NICO-907 BC
[2022-01-04] MEDS ORDERED: loperamide 2mg capsule PO PRN (20:30)
[2022-01-04] MEDS ORDERED: magnesium hydroxide 30ml (MOM) UD suspension PO PRN (20:30)
[2022-01-04] MEDS ORDERED: mag hydrox/Alum hydrox/simeth 30ml oral suspension PO PRN (20:30)
[2022-01-04] MEDS ORDERED: acetaminophen 325mg tablet PO PRN ×2 (20:30)
[2022-01-04] MEDS ORDERED: hydrOXYzine 25 MG tablet PO PRN (22:10)
[2022-01-04] MEDS ORDERED: NO HOME MEDS (22:30)
[2022-01-04] MEDS: traZODone 50mg tablet PO PRN (23:35)
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
[2022-01-05 08:00] VITALS: BP 129/79
[2022-01-05 08:05] LABS: CHOL/HDL RATIO 3.5 (0.00-4.99); CHOLESTEROL 184 MG/DL (0-200); HDL CHOLESTEROL 52 MG/DL (35-60); LDL CHOLESTEROL 104 MG/DL (50-100); TRIGLYCERIDES 51 MG/DL (20-135)
[2022-01-05 08:44] LABS: HEMOGLOBIN A1C 5.4 % (4.5-6.2)
--- NOTE | 2022-01-05 09:23 | NUR ---
Pt attended group today. We talked about Self Nurturing about how to curate spaces of nurture/self-care for themselves. We then did Vision board visualizing safe/nurture places and words. We read through a Personal Bill of Rights sheet, and they each discussed what rights they most identified with in order for them to develop their own bill of rights. Pt. engaged in the group appropriately. His mood appeared depressive with a restricted affect. He was alert and oriented X 4. His thought content and thought process appeared WNL. He was able to report places and spaces that he finds nurturing. He was open to others in the group and appeared to enjoy socializing. At times he appeared a bit guarded. Alayna Patel LCSW
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
[2022-01-05 20:00] VITALS: BP 142/74
[2022-01-06] MEDS: traZODone 50mg tablet PO PRN ×2 (00:05→20:31)
--- NOTE | 2022-01-06 00:07 | NUR ---
Sleeping note: Pt observed to be sitting on the edge of his bed with legs hakeem-crossed. Pt refused trazadone and atarax stating "I don't take meds anymore."
--- NOTE | 2022-01-06 00:11 | NUR ---
Nursing Progress Note: Sylvester Problem: Patient admitted to [facility] on 5150 for DTS and DTO. Patient was walking around [facility] with a hammer, looking to harm someone. "I grabbed a hammer and walked around down[place] looking for someone to bash their fucking head in. I was having impulsive destructive behaviors." Patient continues to present as manic, grandiose, and tangential. He denies all MH symptoms. Intervention: Patient in his room sitting by the bed looking at his shirt. Pt smiled at this RN and states I know you from 4 months ago when I was here. Pt states he has depression 9/10 and always has it. Denies anxiety, denies SI or HI. Declined snacks. No scheduled medications ordered on this shift. Provided with a safe and therapeutic environment, clear communication, Q 15 minute safety checks, active listening and positive encouragement. He was isolative to his room, refused snacks. Response: He isolates to his room. Patient does not appear to have good insight or judgement. Patient exhibits antisocial behaviors. Plan: Patient requires crisis interruption and stabilization with medication management and monitoring in a safe and therapeutic environment.
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
[2022-01-06 08:00] VITALS: BP 134/89
--- NOTE | 2022-01-06 14:51 | NUR ---
Patient Incident: Patients mother called this check writer endorsing that pt had called her today endorsing that he tried to kill himself last night by strangling himself in bed with his feet. Patients mother also endorsed that patient reported delusional thoughts of being/ becoming a serial killer to her. This check writer reported these claims by patients mother to Dr. Humphrey. Dr. Birmingham requested this check writer to talk to patient and clarify claims made of being a serial killer. This check writer approached patient in his room and endorsed concerns of what he may have said to his mother today in regards to being a serial killer. This check writer gave patient opportunity to clarify what had been said to his mother. Patient became irritated and hostile endorsing thats not what he really said, also endorsing that he has thoughts of being a serial killer but it is mainly his depression. This information was relayed to Dr. Birmingham who then asked this check writer to join him in patients room to clarify statements made by pt. Upon entering patients room, he was noted being verbally aggressive on the telephone while talking to his mother. Patient then became hostile and angry with this check writer endorsing that this check writer accused him of being a serial killer. He then proceeded to state toward this check writer, I can become one if you want me to in a threatening manner. Charge nurse notified of threat made by patient to this check writer with advisement for patient to have care assumed by RN for safety precautions.
[2022-01-06 16:17] LABS: CLARITY,URINE CLEAR (Clear); COLOR,URINE YELLOW (Yellow); GLUCOSE, URINE NEGATIVE (Neg); KETONES,URINE TRACE mg/dl (Neg); LEUKOCYTE ESTERASE ,URINE NEGATIVE (Neg); NITRITES, URINE NEGATIVE (Neg); OCCULT BLOOD,URINE NEGATIVE (Neg); PROTEIN,URINE NEGATIVE (Neg); UROBILINOGEN,URINE 0.2 E.U/dL (0.2-1.0)
[2022-01-06 16:26] LABS: UA COLLECTION TYPE NON-SPECIFIED
--- NOTE | 2022-01-06 17:54 | NUR ---
Nursing Progress Note: RN ASSUMED CARE OF PT. @ 1400 Problem: Patient admitted to [facility] on 5150 for DTS and DTO. Patient was walking around [facility] with a hammer, looking to harm someone. "I grabbed a hammer and walked around [place] looking for someone to bash their fucking head in. I was having impulsive destructive behaviors." Patient continues to present as manic, grandiose, and tangential. He denies all MH symptoms. Intervention: Encouraged expression of feelings. Provided 1:1 assessment. Maintained a safe and supportive environment, ensured contract for safety, provided clear and simple instructions, provided direction and encouragement regarding performance of ADLs, monitored behaviors and maintained clear boundaries, provided positive reinforcement, and maintained Q15 minute safety checks. Response: Pt. overheard yelling at his mother and swearing loudly. Pt. states, Its because of you that this happens!. Pt. later apologized to staff about his behavior and states that he feels he will try taking medications now. U/A repeated due to contaminated previous test. U/A was negative. Plan: Patient continues to require crisis interruption, stabilization with medication management. Maintain a safe and supportive environment, ensure contract for safety, monitor behaviors and provide redirection as needed, encourage independent performance of ADLs and provide assistance as needed. Pt continues to require a safe and supportive environment and medication adjustments.
[2022-01-06 19:52] VITALS: BP 120/67
[2022-01-06] MEDS: ARIPIPRAZOLE 10 MG TABLET PO SCH (20:30)
--- NOTE | 2022-01-07 05:10 | NUR ---
Nursing Progress Note: Problem: Patient admitted to [facility] on 5150 for DTS and DTO. Patient was walking around [facility] with a hammer, looking to harm someone. "I grabbed a hammer and walked around [place] looking for someone to bash their fucking head in. I was having impulsive destructive behaviors." Patient continues to present as manic, grandiose, and tangential. He denies all MH symptoms. Intervention: Patient was found sitting in community coloring at beginning of shift. Patient stats the coloring helps him to calm down. Patient asked for new medications then with to bed. Nurse brought patient noc medications. Patient took medications before going back to bed Response: Patient came to nurse asking what changes doctor had made to his medications to help him to keep his rage under control. Patient stated he is will take anything we give him as long as it works. Plan: Patient continues to require crisis interruption, stabilization with medication management. Maintain a safe and supportive environment, ensure contract for safety, monitor behaviors and provide redirection as needed, encourage independent performance of ADLs and provide assistance as needed. Pt continues to require a safe and supportive environment and medication adjustments.
[2022-01-07 08:00] VITALS: BP 112/70
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
--- NOTE | 2022-01-07 16:33 | NUR ---
Nursing Progress Note: Problem: Patient admitted to [facility] on 5150 for DTS and DTO. Patient was walking around [facility] with a hammer, looking to harm someone. "I grabbed a hammer and walked around [place] looking for someone to bash their fucking head in. I was having impulsive destructive behaviors." Patient continues to present as manic, grandiose, and tangential. He denies all MH symptoms. Intervention: Encouraged expression of feelings. Patient in LOS d/t elopement risk. Provided 1:1 assessment and medication administration. Maintained a safe and supportive environment, ensured contract for safety, provided clear and simple instructions, provided direction and encouragement regarding performance of ADLs, monitored behaviors and maintained clear boundaries, provided positive reinforcement, and maintained Q15 minute safety checks. Response: 1:1 done at bedside, pt. denies all psych symptoms and says he feels good. Pt. reports feeling sedated after taking his first dose of Abilify. Pt. displays significant thought blocking during interview. When asked the date pt. at first responded, 19. No 2021. Pt. is socially withdrawn. RN observed pt. in his room doing pushups. In afternoon pt. observed in the hallway, smiling and laughing talking with staff. Plan: Patient continues to require crisis interruption, stabilization with medication management. Maintain a safe and supportive environment, ensure contract for safety, monitor behaviors and provide redirection as needed, encourage independent performance of ADLs and provide assistance as needed. Pt continues to require a safe and supportive environment and medication adjustments.
[2022-01-07 20:00] VITALS: BP 134/84
[2022-01-07] MEDS: ARIPIPRAZOLE 10 MG TABLET PO SCH (20:35)
[2022-01-07] MEDS: traZODone 50mg tablet PO PRN (20:35)
--- NOTE | 2022-01-08 00:32 | NUR ---
Nursing Progress Note: Sylvester Problem: Patient admitted to [facility] on 5150 for DTS and DTO. Patient was walking around [facility] with a hammer, looking to harm someone. "I grabbed a hammer and walked around down[place] looking for someone to bash their fucking head in. I was having impulsive destructive behaviors." Patient continues to present as manic, grandiose, and tangential. He denies all MH symptoms. Intervention: Provided 1:1 assessment and medication administration. Maintained a safe and supportive environment, ensured contract for safety, provided clear and simple instructions, provided direction and encouragement regarding performance of ADLs, monitored behaviors and maintained clear boundaries, provided positive reinforcement, and maintained Q15 minute safety checks. Response: 1:1 done at bedside, pt. States he has depression all the time. He states he has fleeting ideas of suicide with no plan. Pt. is socially withdrawn. RN observed pt. in the community room stretching with one of the chairs. Pt served his 5250 with no issue. Plan: Patient continues to require crisis interruption, stabilization with medication management. Maintain a safe and supportive environment, ensure contract for safety, monitor behaviors and provide redirection as needed, encourage independent performance of ADLs and provide assistance as needed. Pt continues to require a safe and supportive environment and medication adjustments.
[2022-01-08 08:35] VITALS: BP 99/72
--- NOTE | 2022-01-08 09:34 | NUR ---
Initial: Pt admit on 5149 for DTS and DTO. Pt on a regular diet and overall eating well with three meal refusals and 75-100% PO intake all surrounding meals. LBM 01/07. No edema and skin intact per EMR. No nutrition diagnosis at this time. Will continue to follow and make recommendations as appropriate. Recommendations: 1) Continue regular diet 2) Bowel care PRN 3) Weekly scaled weights Addendum: 01/08/22 at [address] Amended: Links added.
--- NOTE | 2022-01-08 15:55 | NUR ---
Nursing Progress Note: Problem: Patient admitted to [facility] on 5150 for DTS and DTO. Patient was walking around [facility] with a hammer, looking to harm someone. "I grabbed a hammer and walked around down[place] looking for someone to bash their fucking head in. I was having impulsive destructive behaviors." He denies all MH symptoms. Intervention: Encouraged expression of feelings. Provided 1:1 assessment and medication administration. Maintained a safe and supportive environment, ensured contract for safety, provided clear and simple instructions, provided direction and encouragement regarding performance of ADLs, monitored behaviors and maintained clear boundaries, provided positive reinforcement, and maintained Q15 minute safety checks. Response: Received Pt in bed resting without distress. Pt was cooperative with vitals and ate all meals well. Pt did not have scheduled meds on this shift. Assessment done at bedside, pt. denies current psych symptoms and states Im gonna take my meds this time. Pt needed questions repeated multiple times and appeared to be looking past this RN in conversation, in a pre-occupied manner. Pt overall pleasant and cooperative. Pt. remains socially withdrawn. RN observed pt. in his room doing pushups. Pt. observed in the hallway, smiling and talking. Plan: Patient continues to require crisis interruption, stabilization with medication management. Maintain a safe and supportive environment, ensure contract for safety, monitor behaviors and provide redirection as needed, encourage independent performance of ADLs and provide assistance as needed. Pt continues to require a safe and supportive environment and medication adjustments.
[2022-01-08 20:00] VITALS: BP 119/79
[2022-01-08] MEDS: traZODone 50mg tablet PO PRN (20:45)
[2022-01-08] MEDS: ARIPIPRAZOLE 10 MG TABLET PO SCH (20:45)
--- NOTE | 2022-01-09 02:50 | NUR ---
Nursing Progress report: Problem :Patient admitted to [facility] on 5150 for DTS and DTO. Patient was walking around [facility] with a hammer, looking to harm someone. "I grabbed a hammer and walked around [place] looking for someone to bash their fucking head in. I was having impulsive destructive behaviors." Interventions :Patient states that he is here due to not taking his medications. The patient denies MH S/S. The patient likes to talk with cohorts and spend time watching movies on TV. Response :The patient is polite and appropriate. The patient was social and appropriate with peers. The patient took all evening meds w/o complications. The patient went to bed after med pass. Plan :Interrupt current crisis. Encourage patient to take medications prescribed. Provide a safe and secure environment.
[2022-01-09 07:55] VITALS: BP 104/74
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
[2022-01-09 19:28] VITALS: BP 127/80
[2022-01-09] MEDS: ARIPIPRAZOLE 10 MG TABLET PO SCH (21:10)
--- NOTE | 2022-01-10 01:22 | NUR ---
Nursing Progress Note: Problem: Patient admitted to [facility] on 5150 for DTS and DTO. Patient was walking around [facility] with a hammer, looking to harm someone. "I grabbed a hammer and walked around downw looking for someone to bash their fucking head in. I was having impulsive destructive behaviors." Patient continues to present as manic, grandiose, and tangential. He denies all MH symptoms. Pt walking halls beginning of shift, is calm and pleasant, smiling, and cooperative. Pt states everything is good Pt states he is happy with his medications, as he is still able to lift weights and exercise with them. Pt states did not need anything for sleep tonight, as he is doing good. Intervention: Pt did not request any PRNs Response: Pt was cooperative and pleasant throughout the shift. Pt was walking halls and sitting in chair tonight. S Plan: Patient continues to require crisis interruption, stabilization with medication management. Maintain a safe and supportive environment, ensure contract for safety, monitor behaviors and provide redirection as needed, encourage independent performance of ADLs and provide assistance as needed. Pt continues to require a safe and supportive environment and medication adjustments.
[2022-01-10 08:00] VITALS: BP 117/77
--- NOTE | 2022-01-10 13:01 | NUR ---
Nursing Progress Note Problem: Patient admitted to [facility] on 5150 for DTS and DTO. Patient was walking around [facility] with a hammer, looking to harm someone. "I grabbed a hammer and walked around [place] looking for someone to bash their fucking head in. I was having impulsive destructive behaviors." He denies all MH symptoms. Intervention: Encouraged expression of feelings. Provided 1:1 assessment and medication administration. Maintained a safe and supportive environment, ensured contract for safety, provided clear and simple instructions, provided direction and encouragement regarding performance of ADLs, monitored behaviors and maintained clear boundaries, provided positive reinforcement, and maintained Q15 minute safety checks. Response: Received Pt in bed resting without distress. Pt was cooperative with vitals and ate all meals well. Pt did not have scheduled meds on this shift. Assessment done at bedside, pt. denies current psych symptoms. We talked about doing things to get connected to his community in [facility] in order to not isolate and allow bad thoughts to ruminate. Pt seen walking halls and talking with other Pts. Pt continues to exercise in his room. He was in pleasant mood today and complimentary of [facility] and staff. Pt continues to state that he will stay on his meds when discharged and his mother and brother care about him and will help, although he lives alone. Pt reports wanting to find a job stay busy. Pt denies SI, HI. Plan: Patient continues to require crisis interruption, stabilization with medication management. Maintain a safe and supportive environment, ensure contract for safety, monitor behaviors and provide redirection as needed, encourage independent performance of ADLs and provide assistance as needed. Pt continues to require a safe and supportive environment and medication adjustments.
[2022-01-10 20:00] VITALS: BP 114/78
[2022-01-10] MEDS: ARIPIPRAZOLE 10 MG TABLET PO SCH (20:06)
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
[2022-01-11 07:52] VITALS: BP 125/70
--- NOTE | 2022-01-11 17:08 | NUR ---
Nursing Progress Note: Sylvester Problem: Patient admitted to [facility] on 5150 for DTS and DTO. Patient was walking around [facility] with a hammer, looking to harm someone. "I grabbed [place] and [place] looking for someone to bash their fucking head in. I was having impulsive destructive behaviors." Current hold 5250: Pt. endorses fleeting SI and presents as hyper verbal during assessment. Intervention: Medication administration, provided safe and supportive environment, ensured contract for safety, provided clear and simple instructions, provided direction and encouragement regarding performance of ADLs, monitored behaviors and maintained clear boundaries, provided positive reinforcement He was also encouraged to participate in group therapy. Response: Pt. endorses fleeting thoughts of suicide denies HI, A/VH, he presents as cooperative with staff, paces the unit, and participated in group therapy. Pt. can often be observed sitting in community room or standing in the grubbs socializing with numerous cohorts. He reports he plans to return home and stay on my medications, because my Mom is making it a requirement Plan: Patient continues to require crisis interruption, stabilization with medication management. Staff maintained Q15 minute safety checks.
[2022-01-11] MEDS: ARIPIPRAZOLE 10 MG TABLET PO SCH (20:17)
[2022-01-11 20:48] VITALS: BP 112/76
[2022-01-11] MEDS: traZODone 50mg tablet PO PRN (21:59)
--- NOTE | 2022-01-12 02:30 | NUR ---
Nursing Progress Note: Problem: Patient admitted to [facility] on 5150 for DTS and DTO. Patient was walking around [facility] with a hammer, looking to harm someone. "I grabbed a hammer and walked around [place] looking for someone to bash their fucking head in. I was having impulsive destructive behaviors." He denies all MH symptoms. Intervention: Encouraged expression of feelings. Provided 1:1 assessment and medication administration. Maintained a safe and supportive environment, ensured contract for safety, provided clear and simple instructions, provided direction and encouragement regarding performance of ADLs, monitored behaviors and maintained clear boundaries, provided positive reinforcement, and maintained Q15 minute safety checks. Response: Patient says, "I'm doing great. I can go back home to my mom's, but I must continue to take my medicine. That's the deal. Patient reports that he still needs to get his anger under control, stop being so impulsive, and channel it into a force for good. He denies all MH symptoms. Plan: Patient continues to require crisis interruption, stabilization with medication management. Maintain a safe and supportive environment, ensure contract for safety, monitor behaviors and provide redirection as needed, encourage independent performance of ADLs and provide assistance as needed. Pt continues to require a safe and supportive environment and medication adjustments.
[2022-01-12] MEDS ORDERED: aripiprazole 400mg suspension ER syringe IM ONE (07:10)
[2022-01-12 07:24] VITALS: BP 121/79
--- NOTE | 2022-01-12 17:45 | NUR ---
Nursing Progress Note: Problem: Patient admitted to [facility] on 5150 for DTS and DTO. Patient was walking around [facility] with a hammer, looking to harm someone. "I grabbed a hammer and walked around [place] looking for someone to bash their fucking head in. I was having impulsive destructive behaviors." He denies all MH symptoms. Intervention: RN administered IM Abilify Maintena injection, given in right gluteal. RN Encouraged expression of feelings. Provided 1:1 assessment and medication administration. Maintained a safe and supportive environment, ensured contract for safety, provided clear and simple instructions, provided direction and encouragement regarding performance of ADLs, monitored behaviors and maintained clear boundaries, provided positive reinforcement, and maintained Q15 minute safety checks. Response: Pt. has positive outlook on the future and is excited about his discharged tomorrow. Pt. reports taking things one step at a time and getting involved with more community activities. Pt. was social with peers and seen smiling and pacing on the unit. Pt. also napped intermittently throughout the day. Plan: Patient continues to require crisis interruption, stabilization with medication management. Maintain a safe and supportive environment, ensure contract for safety, monitor behaviors and provide redirection as needed, encourage independent performance of ADLs and provide assistance as needed. Pt continues to require a safe and supportive environment and medication adjustments.
[2022-01-12 20:00] VITALS: BP 110/86
[2022-01-12] MEDS: ARIPIPRAZOLE 10 MG TABLET PO SCH (21:07)
[2022-01-12] MEDS: traZODone 50mg tablet PO PRN (21:07)
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
[2022-01-13 07:47] VITALS: BP 135/84
[2022-01-13] MEDS ORDERED: TRAZ-251 PO (10:51)
[2022-01-13] MEDS ORDERED: ARIP15TA3 PO (10:55)
[2022-01-13] MEDS ORDERED: ARIP400S3 IM (10:57)
--- NOTE | 2022-01-13 11:03 | NUR ---
DISCHARGE PLAN Sylvester is discharging home today. [employer] is picking him up at 12:30 PM. He has follow up scheduled with [facility]. DONNY Bird
--- NOTE | 2022-01-13 12:55 | NUR ---
Discharge Note: Pt. was discharged from the unit accompanied by Beau to vehicle which will be transporting him back to his home. Tech inventoried pt's belongings with him and returned them. This check writer salesperson reviewed medications and discharge instructions with pt. and he reported understanding. Pt. will follow-up with [facility]. His next Abilify Maintena Injection will be 02/10/22. No nicotine replacement was required.
== END 2022-01-13 12:50 | disposition home or self-care (01) | DRG 753 ==
LOC: ADULT MH 20:16
PROVIDERS: ADMIT Psychiatry & Neurology Psychiatry; ATTEND Psychiatry & Neurology Psychiatry
DX: F31.60 Bipolar disorder, current episode mixed, unspecified (principal); R45.851 Suicidal ideations; F10.10 Alcohol abuse, uncomplicated; F43.12 Post-traumatic stress disorder, chronic; Z60.2 Problems related to living alone; F17.200 Nicotine dependence, unspecified, uncomplicated; F12.20 Cannabis dependence, uncomplicated; F60.81 Narcissistic personality disorder; F90.9 Attention-deficit hyperactivity disorder, unspecified type; Z83.3 Family history of diabetes mellitus; Z71.6 Tobacco abuse counseling
CPT/HCPCS: 36415; 80061; 81003; 83036; 87081; Q0177